=== PATIENT | male | born 1990 | race African-American/Black ===

== ENCOUNTER 2020-09-15 00:47 | Emergency (ER) | payer OTHER, SELFPAY ==
[2020-09-15 00:50] VITALS: BP 136/78; PULSE 74; RESP 18; TEMP 37.1; O2SAT 100
--- NOTE | 2020-09-15 01:00 | ED.DENTAL ---
HPI - Dental/Oral General Chief complaint: Dental/Oral Stated complaint: mouth pain Time Seen by Provider: 09/15/20 00:55 Source: RN notes reviewed History of Present Illness HPI Narrative: Patient presents emergency department from home via EMS for dental pain. Patient states symptoms began yesterday. States that his left upper tooth is carious and chipped he states the pain became severe last night he took a drill bit to try to help the pain broke off another piece of the tooth he states he did not drill into his tooth or into his gum he states he did take ibuprofen for pain with minimal relief he denies any fevers or chills ear pain sore throat inability to swallow or any other symptoms. patient states he does not have a dentist patient states he was trying to use the drill bit only to break up the tooth denies any thoughts of harming himself Related Data Allergies Allergy/AdvReac Type Severity Reaction Status Date / Time No Known Allergies Allergy Verified 05/09/19 15:34 Review of Systems Review of Systems: Narrative: Gen.: Denies fevers or chills HEENT: See HPI Respiratory: Denies shortness of breath Neuro: Denies headache Skin: Denies rash Endo: Denies DM PMFSH Past Medical History Medical History (Updated 09/15/20 @ 01:02 by Oscar Alva DO) Traumatic brain injury Social History Social History Smoking status: Never smoker Gender identity (if verbalized by the patient): Male Exam Narrative: Exam Narrative: APPEARANCE: No acute distress, nontoxic, resting in bed HEENT: Normocephalic, atraumatic, TMs clear bilaterally, nares patent, oral mucosa moist, airway patent, tooth approximately #12 is carious and chipped there is mild erythema of the gum with no fluctuance there is no open wound seen in the mouth there are several other carious teeth there is no swelling of the face in this region RESPIRATORY: No respiratory distress MUSCULOSKELETAl: Moves all extremities. NEURO: Awake and alert. Following commands, speech normal, no focal deficits SKIN:: Warm, dry. Normal Color PSYCHIATRIC: Normal affect/mood, denies suicidal ideation, denies homicidal ideation Course Course Emergency Course: Discussed with patient results of workup and diagnosis. Discussed need for follow-up with primary care, proper use of medication, and reasons to return to the emergency department. Patient understands and agrees to current treatment plan Vital Signs Vital signs: Vital Signs Temperature 98.7 F 09/15/20 00:50 Pulse Rate 74 09/15/20 00:50 Respiratory Rate 18 09/15/20 00:50 Blood Pressure 136/78 09/15/20 00:50 Pulse Oximetry 100 09/15/20 00:50 Temperature 98.7 F 09/15/20 00:50 Pulse Rate 74 09/15/20 00:50 Respiratory Rate 18 09/15/20 00:50 Blood Pressure 136/78 09/15/20 00:50 Pulse Oximetry 100 09/15/20 00:50 Discharge Plan Discharge Clinical Impression: Dental caries, Toothache Patient Disposition: Home, Self-Care Condition: Stable Instructions: Antibiotic Form, Toothache (ED) Additional Instructions: Return for increasing pain fever or any other symptoms of concern Prescriptions: New ibuprofen [IBU] 600 mg tablet 600 mg PO Q6H PRN (Reason: pain) Qty: 20 RF: 0 penicillin V potassium 500 mg tablet 500 mg PO TID Qty: 30 RF: 0 Follow-up/Referrals: [facility] Dental [facility] [Outside] - 2 Days [facility] [Outside] - 2 Days Zheng Arias MD [Physician] - (Follow-up in 1-2 days for further on-call physician treatment and evaluation) UNKNOWN,DOCTOR [Primary Care Provider] - Stand Alone Forms: Work/School Release IP Time of Disposition: :
[2020-09-15] MEDS: PENICILLIN V POTASSIUM 250 MG TABLET 500 MG PO (01:12)
[2020-09-15] MEDS: HYDROcodone/acetaminophen (*CRX) 5-325 MG TABLET 1 TAB PO (01:12)
[2020-09-15 01:30] VITALS: BP 128/71; PULSE 72; RESP 16; O2SAT 100
== END 2020-09-15 01:30 | disposition home or self-care (01) ==
LOC: ANHED 01:13
PROVIDERS: Emergency Provider Emergency Medicine
DX: K02.9 Dental caries, unspecified (principal); Z87.820 Personal history of traumatic brain injury
CPT/HCPCS: 99283; A9270

== ENCOUNTER 2023-05-11 12:17 | Emergency (ER) | payer OTHER, SELFPAY ==
--- NOTE | ~2023-05-11 | XR_ITS ---
EXAMINATION: XR finger 5th RT min 2V DATE: 05/11/2023 13:35 INDICATION: Decreased range of motion to the right fifth proximal interphalangeal joint with a post i njury TECHNIQUE: Dorsal palmar, lateral and oblique views of the right fifth digit were obtained COMPARISON: None FINDINGS: There is hyperextension at the right fifth distal interphalangeal joint. Alignment is otherwise unrem arkable. No fracture. Joint spaces appear normal with no erosions or osteophytosis. Soft tissues are unremarkable. IMPRESSION: 1. Hyperextension at the right fifth distal interphalangeal joint. No other osseous abnormality. Reviewed, dictated and finalized at location A. OPERATOR IMPRESSION: 1. Hyperextension at the right fifth distal interphalangeal joint. No other oss eous abnormality.
[2023-05-11 13:03] VITALS: BP 115/76; PULSE 72; RESP 20; TEMP 36.8; O2SAT 100
--- NOTE | 2023-05-11 13:18 | ED.EXTPRO ---
HPI - Extremity Problem General Chief complaint: Extremity Problem,Nontraumatic Stated complaint: cant bend R. pinky finger Time Seen by Provider: 05/11/23 14:25 Source: patient Mode of arrival: ambulatory Limitations: no limitations History of Present Illness HPI Narrative: Patient is a 33-year-old male who presents for pain to the right pinky that has been going on 1 year, states he feels he can't bend his pinky like he should be able to. he jammed it 1 year ago. was never seen for this. denies numbness/tingling to the finger. Related Data Allergies Allergy/AdvReac Type Severity Reaction Status Date / Time No Known Allergies Allergy Verified 05/09/19 15:34 Review of Systems Review of Systems: CONSTITUTIONAL: Denies fever MUSCULOSKELETAL:+right pinky pain and decreased ability to bend it NEUROLOGIC: Denies numbness, or weakness. All systems reviewed & are unremarkable except as noted in HPI and below PMFSH Past Medical History Medical History (Updated 05/11/23 @ 14:30 by Paola Torres APRN) Traumatic brain injury Social History Social History Smoking status: Never smoker Gender identity (if verbalized by the patient): Male Exam Narrative: BRIEF FOCUSED EXAM: RUE: there is no swelling to the right little finger. distal NV intact. cap refill <2 seconds. decreased ROM distal of the PIP joint and DIP joint. no warmth. 1425: GENERAL: Well-appearing, well-nourished, and in no acute distress. HEAD: Normocephalic HEART: regular rate. RESP: respirations regular and non-labored. RUE: there is no swelling to the right little finger. distal NV intact. cap refill <2 seconds. decreased ROM distal of the PIP joint and DIP joint. no warmth. SKIN: Warm, dry, no rash. NEURO: No focal deficits. PSYCH: flat affect. Course Vital Signs Vital signs: Vital Signs Temperature 98.2 F 05/11/23 13:03 Pulse Rate 72 05/11/23 13:03 Respiratory Rate 20 05/11/23 13:03 Blood Pressure 115/76 05/11/23 13:03 Pulse Oximetry 100 05/11/23 13:03 Oxygen Delivery Room Air 05/11/23 13:03 Temperature 98.2 F 05/11/23 13:03 Pulse Rate 72 05/11/23 13:03 Respiratory Rate 20 05/11/23 13:03 Blood Pressure 115/76 05/11/23 13:03 Pulse Oximetry 100 05/11/23 13:03 Oxygen Delivery Room Air 05/11/23 13:03 MDM - Extremity (Nontraumatic) MDM Narrative Medical decision making narrative: presents for little finger pain/decreased bending after jamming it a year ago. X_RAY negative for acute fracture, there is minor decreased ROM of the DIP joint compared to other digits. no signs of infection. discussed he shoudl f/u with ortho if needed/hand but likely has been a year now there may not be anything else to do. discussed otc tylenol/motrin, gentle stretching and splint for comfort if needed. Patient is nontoxic in appearance. Stable re-evaluation exam just before discharge. Patient in no acute distress. Vitals within normal limits. Discussed return precautions with the patient including all the red flag signs or symptoms of when to return the patient. The patient verbalized understanding and was agreeable with discharge and close follow-up Medical Records Attestation: I reviewed the patient's medical records. Discharge Plan Discharge Clinical Impression: Pain in finger of right hand Injury of right little finger Qualifiers: Encounter type: initial encounter Qualified Code(s): S69.91XA - Unspecified injury of right wrist, hand and finger(s), initial encounter Patient Disposition: Home, Self-Care Condition: Stable Instructions: Antibiotic Form, Jammed Finger (ED) Additional Instructions: over the counter tylenol/motrin for any pain splint for comfort see orthopedics/hand if needed Emergency Departments (ED) provide medical screening exams and initial stabilizing treatment of emergency medical conditions. Medicine is a
== END 2023-05-11 14:39 | disposition home or self-care (01) ==
PROVIDERS: Emergency Provider Nurse Practitioner
DX: S69.91XA Unspecified injury of right wrist, hand and finger(s), initial encounter (principal); M79.644 Pain in right finger(s); Z87.820 Personal history of traumatic brain injury; X58.XXXA Exposure to other specified factors, initial encounter
CPT/HCPCS: 29130; 73140; 99283

== ENCOUNTER 2024-05-18 06:50 | Day surgery (SDC) | payer OTHER, SELFPAY ==
[2024-04-27 13:43] VITALS: BMI 32.3
--- NOTE | 2024-05-18 06:51 | PM.HPGS ---
History of Present Illness History of Present Illness Chief complaint: Keloid Right Ear Narrative: Patient seen and examined in pre-operative holding area. No interval change in medical history or symptoms. Patient recalls previous discussion of benefits and alternatives to procedure. Continues to desire to proceed with excision right earlobe keloid. Reviewed procedure, post-op expectations and risks including but not limited to bleeding, infection, asymmetry, undesireable cosmetic appearance, no change or worsening of symptoms, recurrence. I discussed the possible use of assistants and their participation in the case. Patient stated understanding and signed the consent form wishing to proceed. Review of Systems Review of Systems: All systems reviewed & are unremarkable except as noted in HPI and below PMFSH Past Medical History Medical History (Updated 04/04/24 @ 11:07 by Sierra Gandhi MD) Traumatic brain injury Social History Social History Smoking status: Never smoker Second hand tobacco smoke exposure: Yes Alcohol intake: never Substance use type: does not use Gender identity (if verbalized by the patient): Male Meds Home Medications and Allergies Home Medications ?Medication ?Instructions ?Recorded ?Confirmed ?Type omeprazole 40 mg capsule,delayed mg 05/18/24 History release paliperidone palmitate 78 mg/0.5 mg IM 05/18/24 History mL intramuscular syringe (Invega Sustenna) trazodone 50 mg tablet mg 05/18/24 History Allergies Allergy/AdvReac Type Severity Reaction Status Date / Time No Known Allergies Allergy Verified 05/18/24 08:17 Exam Narrative: unchanged Assessment and Plan Assessment and plan (1) Neoplasm of uncertain behavior of skin: Code(s): D48.5 - Neoplasm of uncertain behavior of skin Status: Acute Assessment and Plan: cont as above (2) Keloid: Code(s): L91.0 - Hypertrophic scar Status: Acute
--- NOTE | 2024-05-18 06:52 | P.OP_ITS ---
Procedure Note - Detailed Date of Procedure 05/18/24 Pre-op Diagnosis Keloid Right Ear Post-op Diagnosis Same Procedure Performed excision right earlobe keloid Surgeon Sierra Gandhi MD Comsec Manager des lott pa-c Anesthesia MAC Description of Procedure Patient was seen in the preoperative holding area where the consent form was signed in the right ear marked. He was taken back to the operating room on the stretcher in the supine position. Time-out was performed with Anesthesia, surgeon, and staff agreeing on patient's name, site, and surgery to be performed. SCDs were placed on lower extremities and inflated. Antibiotics were given IV. After anesthesia administered sedation I proceeded with injecting 5 cc of 1% lidocaine with epinephrine and 0.5% Marcaine plain for greater auricular and local block. Surgical site was prepped and draped in usual sterile fashion. An using a 15 blade scalpel proceed with making an incision on the anterior and posterior surface of the keloid base near normal appearing skin through skin and dermis. A 15 blade was used to elevate normal dermal skin flaps anteriorly and posteriorly and I proceeded with excision of all irregular tissue with 15 blade scalpel. Bovie cautery was used for hemostasis. Resection resulted in a defect measuring 2 x 1.5 cm. Direct line closure would have resulted in significant deformity and bowing of the ear and iregular contour. I proceeded with excising Burow's triangle toward the conchal bowl with 15 blade scalpel sparing auricular cartilage. I further excised and trimmed skin edges to create a smooth contour between helical rim, lobe, and cheek. This allowed for rotation and advancement of the superiorly based flap and ear tissue to achieve closure with minimal tension. The flap was secured to the remaining earlobe/cheek with 5 0 Monocryl and 5 0 Prolene. A dressing of Mastisol, Steri-Strips, 4x4s and a pressure dressing was applied. Patient was awakened from anesthesia and transferred to the recovery room in stable condition. Complications: None estimated blood loss: 3 cc disposition: Patient tolerated the procedure well and will be going home later today Des Lott PA-C was essential for positioning, retraction, closure and dressing placement [facility] [place] - Charge Forward: Surgery Billing ([id number] for des)
--- NOTE | 2024-05-18 06:54 | WPDANESEPPF ---
Anes - Initial Pre Proc Eval Procedure: Operation Date: 05/18/24 09:00 Proposed Procedures p Excision Keloid Right Ear with Tissue Transfer - Sierra Gandhi MD Date/Time: 05/18/24 06:54 Surgeon: Sierra Gandhi MD Pre Op Diagnosis: Keloid Right Ear Patient Data Age: 34 Gender: M Height: 1.68 m Weight: 91 kg Allergies Allergy/AdvReac Type Severity Reaction Status Date / Time No Known Allergies Allergy Verified 05/18/24 08:17 Home Medications ?Medication ?Instructions ?Recorded ?Confirmed ?Type omeprazole 40 mg capsule,delayed mg 05/18/24 History release paliperidone palmitate 78 mg/0.5 mg IM 05/18/24 History mL intramuscular syringe (Invega Sustenna) tramadol 50 mg tablet 50 mg PO Q6H PRN pain #12 tabs 05/18/24 Rx trazodone 50 mg tablet mg 05/18/24 History Patient hx anesthesia problems: none Family hx anesthesia problems: none Results Review: All pre-operative results and documents have been reviewed as part of the pre-operative evaluation. [facility] Past Medical History Medical History (Updated 05/18/24 @ 08:56 by Isaias Adam DO) Schizophrenia Traumatic brain injury Social History Social History (Updated 05/18/24 @ 08:56 by Isaias Adam DO) Smoking status: Current every day smoker Second hand tobacco smoke exposure: Yes Alcohol intake: never Substance use type: does not use Gender identity (if verbalized by the patient): Male Anes - Eval Final PreProcedure Day of Procedure 05/18/24 06:54 Patient weight: obese Heart: regular rate and rhythm Lungs: clear to auscultation Airway: Mallampati scale class II Neurological: alert and oriented Last oral intake: >/= 8 hours ASA classification: III Emergent: no Anesthetic plan: proceed Anesthesia type and monitoring: general GIVS and LMA and standard monitoring Results Review: All pre-operative results and documents have been reviewed as part of the pre-operative evaluation. Informed Consent: The patient's anesthetic plan and its attendant risks and benefits were discussed with the patient/family/POA. Questions were solicited and answers provided to the satisfaction of the patient/family/POA.
[2024-05-18 08:13] VITALS: BP 122/84; PULSE 85; RESP 18; TEMP 36.7; O2SAT 100
[2024-05-18] MEDS: LACTATED RINGERS 1,000 ML 30 ML IV CONT (08:14)
[2024-05-18] MEDS: ceFAZolin SODIUM 2 GM/20 ML SW SYRINGE IV PUSH (08:59)
[2024-05-18] MEDS: BUPivacaine HCL 0.5% PF 30 ML VIAL 5 ML INFILTRATE (09:10)
[2024-05-18 09:42] VITALS: BP 104/71; PULSE 82; RESP 15; O2SAT 100
[2024-05-18 09:47] VITALS: O2SAT 100
[2024-05-18 09:52] VITALS: BP 99/83; PULSE 73; RESP 16; O2SAT 100
[2024-05-18 10:02] VITALS: BP 107/72; PULSE 74; RESP 18; O2SAT 100
--- NOTE | 2024-05-18 10:30 | WPDANESPN ---
Anes - Prog Note Post-Op Date/Time: 05/18/24 10:30 Cardiovascular status: normal Respiratory status: normal Airway patency: baseline Mental status: baseline Post-Op hydration status: normal Vital Signs: Last Vital Signs Temp 36.7 C 05/18/24 08:13 Pulse 74 05/18/24 10:02 Resp 18 05/18/24 10:02 BP 107/72 05/18/24 10:02 Pulse Ox 100 05/18/24 10:02 O2 Del Method Room Air 05/18/24 10:02 O2 Flow Rate 3 05/18/24 09:47 Pain Score (VAS): 0 I/O: Intake & Output 05/17/24 05/18/24 05/18/24 23:59 07:59 15:59 Intake Total 0 Balance 0 Post-procedural complaints: none Patient Feedback: Patient satisfied with anesthetic care. Other Findings: Patient vital signs back to baseline. Patient denies nausea and vomiting. Patient's pain under control. Patient OK for discharge.
== END 2024-05-18 10:24 ==
PROVIDERS: Visit Provider Plastic Surgery
CPT/HCPCS: 14060

== ENCOUNTER 2024-05-18 07:00 | Outpatient (NON) | payer OTHER, SELFPAY | END 2024-05-18 07:01 | disposition home or self-care (01) | LOC: ANHLAB 05-19 08:05 | PROVIDERS: Visit Provider Plastic Surgery | DX: L91.0 Hypertrophic scar (principal); H61.021 Chronic perichondritis of right external ear | CPT/HCPCS: 88304 ==

== ENCOUNTER 2024-07-25 07:42 | Outpatient (CLI) | payer OTHER, SELFPAY ==
--- OUTSIDE RECORDS SUMMARY | 2024-07-25 07:47 | XMS_ITS | Continuity of Care Document ---
Author Name [facility] Organization [facility] Care Team Providers Care Chief Librarian Circulation Department Name Role Phone [facility] Unavailable Unavailable Problems Combined list of problems from Department of Defense and Veterans Affairs facilities. It does not include entries that were removed or entered in error. 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 placed on doxycycline. sending to Derm for eval for I and D. 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 DoD common cold Active Condition DoD Allergies, Adverse Reactions, Alerts Combined list of allergies from Department of Defense and Veterans Affairs facilities. It does not include entries that were removed or entered in error. Substance Category Reaction Severity Reaction type Status Date Reported Comments Source No Known Allergies Drug allergy (disorder) active 01/09/2008 [facility] [place] Immunizations Combined list of available immunizations from the Department of Defense and Veterans Affairs facilities. Immunization Series Date Given Administered By Site Reaction Lot Number CVX Code Drug Weigh Tank Operator Status Comments Source hepatitis A vaccine, pediatric/ado lescent dosage, 2 dose schedule 1 2007 [id number] Sanofi Pasteur ([facility]) complet ed hepatitis A vaccine, pediatric /adolesce nt dosage, 2 dose schedule DoD measles, mumps and rubella virus vaccine 1 2007 [id number] 03 Unknown (UNK) Not Given measles, mumps and rubella virus vaccine DoD varicella virus vaccine 1 2007 UNK 21 Unknown (UNK) Not Given varicella virus vaccine DoD hepatitis B vaccine, adult dosage 1 2007 [id number] 43 Unknown (UNK) Not Given hepatitis B vaccine, adult dosage DoD poliovirus vaccine, inactivated 1 2007 [id number] Sanofi Pasteur ([facility]MC) complet ed polioviru s vaccine, inactivat ed DoD meningococcal polysaccharid e (groups A, C, Y and W-135) diphtheria toxoid conjugate vaccine (MCV4P) 1 2007 [id number] Sanofi Pasteur ([facility]MC) complet ed meningoco ccal polysacch aride (groups A, C, Y and W-135) diphtheri a toxoid conjugate vaccine (MCV4P) DoD tetanus toxoid, reduced diphtheria toxoid, and acellular pertu is vaccine, adsorbed 1 2007 [id number] Sanofi Pasteur ([facility]) complet ed tetanus toxoid, reduced diphtheri a toxoid, and acellular pertussis vaccine, adsorbed DoD Encounters Combined list of: 1) Encounters from Department of Veterans Affairs facilities going backup to the last 18 months, not all VA inpatient encounters are included; 2) Encounters from the Department of Defense facilities going backup to 280 months. Location Location Details Encounter Type Encounter Number Reason For Visit Attending Provider ADM Date DC Date Status Disposition Source ANTHONY Pablo([facility]) OUTPATIENT [id number] cold symptom s BRANDON ROSENBAUM S 01/06 Released w/o Limitations ANTHONY Pablo([facility]) ANTHONY Pablo([facility]) OUTPATIENT [id number] ear infecti on CIRO PINEDA M 01/19 Released w/o Limitations ANTHONY Pablo([facility]) [facility]) OUTPATIENT [id number] SKIN ABSCESS OF THE LEFT EAR HAMILTON ERN M 01/29 Released w/o Limitations ANTHONY Pablo([facility]) ANTHONY Pablo([facility]) OUTPATIENT [id number] Finger swollen SARAH TRINH M 02/22 Released with Work/Duty Limitations ANTHONY Pablo([facility]) [facility] ANTHONY([facility]y Clinic) OUTPATIENT [id number] f/u guillermoHAMILTON Acuna 02/27 Released w/o Limitations ANTHONY Pablo(Derm atology Clinic) [facility] [place]) OUTPATIENT [id number] Blood in OD MILDRED BANKS 03/19 Released w/o Limitations [facility]( [facility] Clinic [facility]) [facility] [place]) OUTPATIENT [id number] ear inf. GERARDO DING E 04/11 Released w/o Limitations [facility]( [facility] n) Procedures Combined list of: 1) Procedures from Department of Veterans Affairs facilities going back up to thelast 18 months, not all VA non-surgical procedures are included; 2) All procedures from the Department of Defense facilities. Procedure Procedure Type Code Date Perfomer Comments [facility] e Determination Of Refractive State Determination Of Refractive State [id number] MILDRED BANKS [facility] Ophthalmological New Patient Start Comprehensive Care Ophthalmological New Patient Start Comprehensive Care [id number] MILDRED BANKS [facility] Intralesional Injections - Up To Seven Intralesional Injections - Up To Seven [id number] 8 H[place] REN [facility] Intralesional Injections - Up To Seven Intralesional Injections - Up To Seven [id number] 8 H[place] REN [facility] Patient Training And Self-Care Skills Additional 15 Minutes Patient Training And Self-Care Skills Additional 15 Minutes [id number] BRANDON ROSENBAUM DoD INJECTION, INTRALESIONAL; UP TO AND INCLUDING 7 LESIONS 8 DoD INJECTION, INTRALESIONAL; UP TO AND INCLUDING 7 LESIONS 8 [facility] SELF-CARE/HOME MANAGMENT TRAIN (EG,ACT OF DAILY LIVING (ADL) &COMPENSAT TRAIN,MEAL PREPARATION,SAFETY PROCS,AND INSTRUCT IN USE OF ASST TECHNOLOGY DEV/ADPT EQUIP) DIR ONE-ON-ONE CONT,EA 15 MINUTES 8 DoD FITTING OF SPECTACLES, EXCEPT FOR APHAKIA; MONOFOCAL 11/03/200 8 DoD Social History Combined list of available smoking, tobacco, and other social history from Department of Defense and Veterans Affairs facilities. Social History Type Response Date Comment Sourc e This section is an empty social history section. DoD
--- OUTSIDE RECORDS SUMMARY | 2024-07-25 07:47 | XMS_ITS | Referral Summary ---
Author Organization [address] Address [address] [facility] [address] [place] [address] Care Team Providers Care Human Resources Temp Name Role Phone Ted Carlos MD Primary Care Provider Encounters Date Type Department Care Team Description 06/14/2024 Telephone [facility] Medical Group Primary Care at [address] [address] Nemo Stephenson MA Test Results; Scheduling Appointments 06/09/2024 8:28 AM SECURITIES UNDERWRITER - 06/09/2024 11:59 PM SECURITIES UNDERWRITER Hospital Encounter [address] [address] Mixed hyperlipidemia Discharge Disposition: Discharge to home or self care 06/09/2024 8:30 AM SECURITIES UNDERWRITER Lab [facility] Medical [facility] at [address] [address] Major depressive disorder, single episode, unspecified (Primary Dx); 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 Insomnia 12/01/2023 Major depressive disorder, single episode, unspe cified 10/28/2023 Schizophrenia 10/28/2023 Assessment & Plan (11/09/2023 12:47 PM CDT): complicated by not having current psychiatry coverage, I will attempt to restart 1st [place] then we will switch him over at earliest opportunity to [facility] Referral to Psychiatry sent Encounter for medical examination to establish c are 10/28/2023 Assessment & Plan (11/09/2023 12:45 PM CDT): A(n) initial Visit to establish care has been performed today. Baldemar Guadarrama is not up to date on screening tests. He is in need of hepatitis-B, C and Cholesterol screening. He is not up to date on needed preventative vaccinations; He is in need of Tdap/Td. We discussed healthy lifestyle habits, educational material has been given. Medications reviewed, changes documented as per the medical record and discussed with patient along with risks vs benefits. Return in 1 month Immunizations Immunization Administration Dates Next Due Influenza, Unspecified 03/06/2024(Deferr ed: Patient Refused),05/17/2023(Deferred: Patient Refused),11/14/2022(Deferred: Patient Refused),05/17/2022(Deferred: Patient Refused) Social History Tobacco Use Types Packs/Day Years Used Date Smoking Tobacco: Never Smokeless Tobacco: Never AUDIT-C Answer Date Recorded Q1: How often do you have a drink containing alc ohol? Monthly or less 10/28/2023 Q2: How many drinks containi ng alcohol do you have on a typical day when you are drinking? 1 or 2 10/28/2023 Q3: How often do you have si x or more drinks on one occasion? Less than monthly 10/28/2023 PHQ-2 Answer Date Recorded PHQ-2 Total Score (If total score is 3 or more points, staff should administer the PHQ-9) 0 03/06/2024 Sex and Gender Information Value Date Recorded Sex Assigned at Not on file Legal Sex Male 4:32 PM CDT Gender Identity Not on file Sexual Orientation Not on file Last Filed Vital Signs Vital Sign Reading Time Taken Comments Blood Pressure 116/80 03/06/2024 8:55 AM CDT Pulse 79 03/06/2024 8:55 AM CDT Temperature 36 C (96.8 F) 03/06/2024 8:55 AM CDT Respiratory Rate 16 03/06/2024 8:55 AM CDT Oxygen Saturation 98% 03/06/2024 8:55 AM CDT Inhaled Oxygen Concentration - - Weight 92.5 kg (204 lb) 03/06/2024 8:55 AM CDT Height 167.6 cm (5' 6 ) 03/06/2024 8:55 AM CDT Body Mass Index 32.93 03/06/2024 8:55 AM CDT Plan of Treatment Not on file Procedures Procedure Name Priority Date/Time Associated Diagnosis Comments EGFR Routine 06/09/2024 8:28 AM SECURITIES UNDERWRITER Mixed hyperlipidemia DIFFERENTIAL AUTO Routine 06/09/2024 8:2 8 AM SECURITIES UNDERWRITER Mixed hyperlipidemia LIPID PANEL Routine 06/09/2024 8:28 AM SECURITIES UNDERWRITER Mixed hyperlipidemia CBC WITH AUTO DIFFERENTIAL Routine 06/09/2024 8:28 AM SECURITIES UNDERWRITER Mixed hyperlipidemia COMPREHENSIVE METABOLIC PANEL Routine 06/09/2024 8:28 AM SECURITIES UNDERWRITER Mixed hyperlipidemia from Last 3 Months Results * eGFR (06/09/2024 8:28 AM SECURITIES UNDERWRITER) Pathologist [facility] eGFR >90 >=60 mL/min/1. 73 m2 Comment: Interpretive Data Reference Interval Normal >/= 90 mL/min/1.73m2 Mildly decreased* 60 - 89 mL/min/1.73m2 Mildly to moderately decreased 45 - 59 mL/min/1.73m2 Moderately to severely decreased 30 - 44 mL/min/1.73m2 Severely decreased 15 - 29 mL/min/1.73m2 Kidney Failure < 15 mL/min/1.73m2 *Relative to young adult level Estimated glomerular filtration rate is determined by the 2020 CKD-EPI equation recommended by the National Kidney Foundation (A Unifying Approach to GFR Estimation: Recommendations of the NKF-ASK Task Force on Reassessing the Inclusion of Race in Diagnosing Kidney Disease, JASN 2020). The CKD-EPI equation should not be used for patients with unstable renal function and has not been validated in children and those over 70. Current interpretive data was last reviewed 2021. Blood 06/09/2024 8:28 AM SECURITIES UNDERWRITER 06/09/2024 5:10 PM SECURITIES UNDERWRITER us Ted Carlos MD LAB BLOOD ORDERABLES Final Result [facility] [address] Department [place] [address] * (ABNORMAL) Differential, auto (06/09/2024 8:28 AM SECURITIES UNDERWRITER) Pathologist [facility] Neutrophil abs 4.8 1.5 - 6.5 K/cumm Imm gran abs 0.0 0.0 - 0.1 K/cumm [facility] Lymphocyte abs 3.8(H) 0.8 - 3.3 K/cumm [facility] Monocyte abs 0.9(H) 0.2 - 0.8 K/cumm [facility] Eosinophil abs 0.4 0.0 - 0.5 K/cumm [facility] Basophil abs 0.1 0.0 - 0.1 K/cumm [facility] Neutrophil pct 48.2 % [facility] Comment: Interpretive Data Percent cell count reference ranges are not reported, since discordance with absolute values may lead to misinterpretation of CBC data. Current Interpretive Data was last revised on 2017. Imm gran pct 0.4 % [facility] Comment: Interpretive Data Percent cell count reference ranges are not reported, since discordance with absolute values may lead to misinterpretation of CBC data. Current Interpretive Data was last revised on 2017. Lymphocyte pct 38.3 % [facility] Comment: Interpretive Data Percent cell count reference ranges are not reported, since discordance with absolute values may lead to misinterpretation of CBC data. Current Interpretive Data was last revised on 2017. Monocyte pct 8.6 % [facility] Comment: Interpretive Data Percent cell count reference ranges are not reported, since discordance with absolute values may lead to misinterpretation of CBC data. Current Interpretive Data was last revised on 2017. Eosinophil pct 3.7 % [facility] Comment: Interpretive Data Percent cell count reference ranges are not reported, since discordance with absolute values may lead to misinterpretation of CBC data. Current Interpretive Data was last revised on 2017. Basophil pct 0.8 % [facility] Comment: Interpretive Data Percent cell count reference ranges are not reported, since discordance with absolute values may lead to misinterpretation of CBC data. Current Interpretive Data was last revised on 2017. Blood 06/09/2024 8:28 AM SECURITIES UNDERWRITER 06/09/2024 4:57 PM SECURITIES UNDERWRITER Ted Carlos MD LAB BLOOD ORDERABLES Final Result [facility] [address] Department [place] [address] * (ABNORMAL) CBC with auto differential (06/09/2024 8:28 AM SECURITIES UNDERWRITER) WBC 10.0(H) 3.8 - 9.9 K/cumm Hgb 13.7 13.0 - 17.5 g/dL [facility] Hct 43.5 38.9 - 50.3 % [facility] Plt 213 150 - 400 K/cumm [facility] MPV 11.4 9.1 - 12.3 fL [facility] RBC 4.64 4.30 - 5.80 M/cumm [facility] MCV 93.8 81.3 - 96.4 fL [facility] MCH 29.5 27.1 - 33.3 pg [facility] MCHC 31.5(L) 32.3 - 35.7 g/dL [facility] RDW CV 14.2 11.1 - 14.9 % [facility] RDW SD 49.1(H) 35.7 - 48.1 fL [facility] NRBC abs 0.00 0.00 - 0.01 K/cumm [facility] Blood 06/09/2024 8:28 AM SECURITIES UNDERWRITER 06/09/2024 4:57 PM SECURITIES UNDERWRITER Ted Carlos MD LAB BLOOD ORDERABLES Final Result [facility] [address] [address] Department [place] [address] * Lipid panel (06/09/2024 8:28 AM SECURITIES UNDERWRITER) Cholesterol 140 30 - 199 mg/dL Comment: Interpretive Data Ages < or = 19 years Acceptable: <170 mg/dL Borderline high: 170-199 mg/dL High: >or= 200 mg/dL Ages > or = 20 years Desirable: <200 mg/dL Borderline high: 200-239 mg/dL High: >or= 240 mg/dL Literature References: 1. Expert Panel on Integrated Guidelines for Cardiovascular Health and Risk Reduction in Children and Adolescents. Pediatrics 2011;128:S213 2. NCEP Expert Panel. Circulation 2004;110:227 Current Interpretive Data was last revised on 2018. Triglycerides 97 <=149 mg/dL [facility] Comment: Interpretive Data Ages < or = 9 years Acceptable: <75 mg/dL Borderline high: 75-99 mg/dL High: >or= 100 mg/dL Ages 10 to 20 years Acceptable: <90 mg/dL Borderline high: 90-129 mg/dL High: >or= 130 mg/dL Ages > or = 20 years Desirable: <150 mg/dL Borderline high: 150-199 mg/dL High: 200-499 mg/dL Very high: >or= 499 mg/dL Literature References: 1. Expert Panel on Integrated Guidelines for Cardiovascular Health and Risk Reduction in Children and Adolescents. Pediatrics 2011;128:S213 2. NCEP Expert Panel. Circulation 2004;110:227 Current Interpretive Data was last revised on 2018. HDL 41 >=40 mg/dL [facility] Comment: Interpretive Data Ages < or = 19 years Acceptable: >45 mg/dL Borderline low: 40-45 mg/dL Low: <40 mg/dL Ages > or = 20 years Desirable: >or= 60 mg/dL Low: <40 mg/dL Literature References: 1. Expert Panel on Integrated Guidelines for Cardiovascular Health and Risk Reduction in Children and Adolescents. Pediatrics 2011;128:S213 2. NCEP Expert Panel. Circulation 2004;110:227 Current Interpretive Data was last revised on 2018. LDL, calculated 81 <=129 mg/dL [facility] Comment: Interpretive Data Ages < or = 19 years Acceptable: <110 mg/dL Borderline high: 110-129 mg/dL High: >or= 130 mg/dL Ages > or = 20 years Optimal: <100 mg/dL Near optimal: 100-129 mg/dL Borderline high: 130-159 mg/dL High: >160 mg/dL Calculated using the Fantasma LDL-C estimating equation. This equation was implemented on 2024. Prior to this date LDL-C was estimated using the Friedewald equation. Literature References: 1. Expert Panel on Integrated Guidelines for Cardiovascular Health and Risk Reduction in Children and Adolescents. Pediatrics 2011;128:S213 2. NCEP Expert Panel. Circulation 2004;110:227 3. Fantasma Cotter al. JIMY Cardiol. 2020 September 14;5(5):540-548. doi: 10.1001/jamacardio.2020.0013 Current Interpretive Data was last revised on 2024. Non-HDL Cholesterol 99 mg/dL [facility] Comment: Interpretive Data Ages < or = 19 years Acceptable: <120 mg/dL Borderline high: 120-144 mg/dL High: >145 mg/dL Ages > or = 20 years When triglycerides are >200 mg/dL, Non-HDL cholesterol is a secondary target of therapy with treatment goals that are 30 mg/dL greater than the LDL cholesterol target. Literature References: 1. Expert Panel on Integrated Guidelines for Cardiovascular Health and Risk Reduction in Children and Adolescents. Pediatrics 2011;128:S213 2. NCEP Expert Panel. Circulation 2004;110:227 Current Interpretive Data was last revised on 2018. Chol/HDL ratio 3 [facility] Blood 06/09/2024 8:28 AM SECURITIES UNDERWRITER 06/09/2024 4:57 PM SECURITIES UNDERWRITER Tde Carlos MD LAB BLOOD ORDERABLES Final Result [facility] [address] Department [place] [address] * Comprehensive metabolic panel (06/09/2024 8:28 AM SECURITIES UNDERWRITER) Sodium 138 135 - 145 mmol/L Potassium, pl 4.5 3.3 - 4.9 mmol/L [facility] Chloride 105 97 - 110 mmol/L [facility] CO2 24 22 - 32 mmol/L [facility] Anion gap 9 2 - 15 mmol/L [facility] BUN 9 6 - 25 mg/dL [facility] Creatinine 1.01 0.80 - 1.30 mg/dL [facility] Glucose 81 70 - 199 mg/dL [facility] Comment: Interpretive Data Fasting glucose >/= 126 mg/dl is diagnostic for diabetes. Fasting is defined as no caloric intake for at least 8 hours. Fasting glucose between 100 mg/dl to 125 mg/dl is diagnostic of prediabetes. In a patient with classic symptoms of hyperglycemia or hyperglycemic crisis, a random glucose >/= 200 mg/dl is diagnostic for diabetes. In the absence of unequivocal hyperglycemia, results should be confirmed by repeat testing. The classification and Diagnosis of Diabetes Diabetes Care 202; 46: S19-S40. Current interpretive data was last revised 2022. Calcium 9.4 8.5 - 10.3 mg/dL [facility] Bilirubin, total <0.2 0.1 - 1.2 mg/dL [facility] Protein, pl 7.2 6.5 - 8.5 g/dL [facility] Albumin 4.1 3.5 - 5.0 g/dL [facility] Alk phos 130 40 - 130 Units/L [facility] ALT 20 7 - 55 Units/L [facility] AST 34 10 - 50 Units/L [facility] Blood 06/09/2024 8:28 AM SECURITIES UNDERWRITER 06/09/2024 4:57 PM SECURITIES UNDERWRITER Ted Carlos MD LAB BLOOD ORDERABLES Final Result Performing Organization Address City/State/ZIP [facility] Phone Number [facility] [address] Department of Laboratories [place] [id number] from Last 3 Months Insurance [id number] [facility] Care Teams Human Resources Temp Relationship Specialty Start Date End Date Ted Carlos MD [address] [address] PCP - General Family Medicine 10/19/23
--- OUTSIDE RECORDS SUMMARY | 2024-07-25 07:47 | XMS_ITS | Clinical Summary ---
Author Organization [facility] [address] Address [address] [place] [address] [address] [place] [address] Care Team Providers Care Ultrasound Technol Name Role Phone Ted Carlos MD Primary Care Provider [phone] Allergies No known active allergies Medications Invega Trinza 273 mg/0.88 mL syringeIndication s:Other schizophrenia (HCC) Inject 0.88 mL (273 mg total) into the muscle as instructed every 3 (three) months 4 Active paliperidone (Invega Sustenna) 78 mg/0.5 mL [...] psychiatry coverage, I will attempt to restart Anthony, 1st [place] then we will switch him over at [...] risks vs benefits. Return in 1 month Encounters Date Type Department Care Team Description 06/14/2024 Telephone [facility] Medical Group Primary Care at [address] [address] Nemo Stephenson MA Test Results; Scheduling Appointments 06/09/2024 8:30 AM SR. MANAGER Lab [facility] at [address] [address] Major depressive disorder, single episode, unspecified (Primary Dx); Class 1 drug-induced obesity with serious comorbidity and body mass index (BMI) of 32.0 to 32.9 in adult; Schizophrenia (HCC) 06/09/2024 8:28 AM SR. MANAGER - 06/09/2024 11:59 PM SR. MANAGER [place] [address] Mixed hyperlipidemia Discharge Disposition: Discharge to home or self care from Last 3 Months Immunizations Immunization Administration Dates Next Due Influenza, Unspecified 03/06/2024(Deferr ed: Patient Refused),05/17/2023(Deferred: Patient Refused),11/14/2022(Deferred: Patient Refused),05/17/2022(Deferred: Patient Refused) Surgical History Surgery Date Site/Laterality Comments NO PAST SURGERIES Medical History Medical History Date Comments ADHD (attention deficit hyperactivity disorder) Allergic Anemia Asthma Depression Eczema GERD (gastroesophageal reflux disease) Headache Sleep difficulties Manic depression (HCC) Schizophrenia (HCC) Family History Medical History Relation Name Comments Depression Brother No Known Problems Father Heart disease Maternal Grandfather Hypertension Maternal Grandfather Asthma Maternal Grandmother Tuberculosis Maternal Grandmother Depression Mother Hyperlipidemia Mother Hypertension Mother Kidney disease Mother Mitral valve prolapse Mother No Known Problems Paternal Grandfather No Known Problems Paternal Grandmother No Known Problems Sister Relation Name Status Comments Brother Alive Father Alive Maternal Grandfather Alive Maternal Grandmother Mother Alive Paternal Grandfather Paternal Grandmother Sister Alive Social History Tobacco Use Types Packs/Day Years [...] on file Sexual Orientation Not on file Obstetrics History Last Filed Vital Signs Vital Sign Reading [...] 03/06/2024 8:55 AM CDT Plan of Treatment Health Maintenance Due Date Last Done Comments Hepatitis C Screening 1989 Hepatitis B Screening 2007 Regular Well Visit/Exam 18-64 2007 Covid-19 Vaccine (2 - season) 2024 01/29/2021 Influenza Vaccine (#1) 2024 Postp oned from 01/16/2024 (Patient declined, but will receive in the future) Depression Screening 03/06/2025 03/06/2024, 10/28/2023, 10/28/2023 DTaP/Tdap/Td Vaccine (1 - Tdap) 05/16/2025 Postponed from 02/14/2000 (Insurance / Financial) HPV Vaccines Aged Out No longer eligi ble based on patient's age to complete this topic Pneumococcal vaccine <65 Aged Out No longer eligible based on patient's age to complete this topic Varicella Vaccines Discontinued Procedures Procedure Name Priority Date/Time Associated Diagnosis Comments EGFR Routine 06/09/2024 8:28 AM SR. MANAGER Mixed hyperlipidemia DIFFERENTIAL AUTO Routine 06/09/2024 8:2 8 AM SR. MANAGER Mixed hyperlipidemia LIPID PANEL Routine 06/09/2024 8:28 AM SR. MANAGER Mixed hyperlipidemia CBC WITH AUTO DIFFERENTIAL Routine 06/09/2024 8:28 AM SR. MANAGER Mixed hyperlipidemia COMPREHENSIVE METABOLIC PANEL Routine 06/09/2024 8:28 AM SR. MANAGER Mixed hyperlipidemia from Last 3 Months Results * eGFR (06/09/2024 8:28 AM SR. MANAGER) eGFR >90 >=60 mL/min/1. 73 m2 Comment: [...] last reviewed 2021. Blood 06/09/2024 8:28 AM SR. MANAGER 06/09/2024 5:10 PM SR. MANAGER us Tde Carlos MD LAB BLOOD ORDERABLES Final Result [facility] [address] Department [place] [address] * (ABNORMAL) Differential, auto (06/09/2024 8:28 AM SR. MANAGER) Neutrophil abs 4.8 1.5 - 6.5 K/cumm Imm gran abs 0.0 0.0 - 0.1 K/cumm [facility] Lymphocyte abs 3.8(H) 0.8 - 3.3 K/cumm [facility] Monocyte abs 0.9(H) 0.2 - 0.8 K/cumm [facility] Eosinophil abs 0.4 0.0 - 0.5 K/cumm [facility] Basophil abs 0.1 0.0 - 0.1 K/cumm [facility] Neutrophil pct 48.2 % [facility] Comment: Interpretive Data Percent cell count reference ranges are not reported, since discordance with absolute values may lead to misinterpretation of CBC data. Current Interpretive Data was last revised on 2017. Imm gran pct 0.4 % [facility] Comment: Interpretive Data Percent cell count reference ranges are not reported, since discordance with absolute values may lead to misinterpretation of CBC data. Current Interpretive Data was last revised on 2017. Lymphocyte pct 38.3 % [facility] Comment: Interpretive Data Percent cell count reference ranges are not reported, since discordance with absolute values may lead to misinterpretation of CBC data. Current Interpretive Data was last revised on 2017. Monocyte pct 8.6 % [facility] Comment: Interpretive Data Percent cell count reference ranges are not reported, since discordance with absolute values may lead to misinterpretation of CBC data. Current Interpretive Data was last revised on 2017. Eosinophil pct 3.7 % [facility] Comment: Interpretive Data Percent cell count reference ranges are not reported, since discordance with absolute values may lead to misinterpretation of CBC data. Current Interpretive Data was last revised on 2017. Basophil pct 0.8 % [facility] Comment: Interpretive Data Percent cell count reference ranges are not reported, since discordance with absolute values may lead to misinterpretation of CBC data. Current Interpretive Data was last revised on 2017. Blood 06/09/2024 8:28 AM SR. MANAGER 06/09/2024 4:57 PM SR. MANAGER us Ted Carlos MD LAB BLOOD ORDERABLES Final Result [facility] [address] Department [place] [address] * (ABNORMAL) CBC with auto differential (06/09/2024 8:28 AM SR. MANAGER) WBC 10.0(H) 3.8 - 9.9 K/cumm Hgb 13.7 13.0 - 17.5 g/dL [facility] Hct 43.5 38.9 - 50.3 % [facility] Plt 213 150 - 400 K/cumm [facility] MPV 11.4 9.1 - 12.3 fL [facility] RBC 4.64 4.30 - 5.80 M/cumm [facility] MCV 93.8 81.3 - 96.4 fL [facility] MCH 29.5 27.1 - 33.3 pg [facility] MCHC 31.5(L) 32.3 - 35.7 g/dL [facility] RDW CV 14.2 11.1 - 14.9 % [facility] RDW SD 49.1(H) 35.7 - 48.1 fL [facility] NRBC abs 0.00 0.00 - 0.01 K/cumm [facility] Blood 06/09/2024 8:28 AM SR. MANAGER 06/09/2024 4:57 PM SR. MANAGER us Ted Carlos MD LAB BLOOD ORDERABLES Final Result [facility] [address] Department [place] [address] * Lipid panel (06/09/2024 8:28 AM SR. MANAGER) Cholesterol 140 30 - 199 mg/dL Comment: [...] revised on 2018. Triglycerides 97 <=149 mg/dL [facility] Comment: Interpretive Data Ages [...] NCEP Expert Panel. Circulation 2004;110:227 3. Fantasma Pablo et al. JIMY Cardiol. 2019September 14;5(5):540-548. doi: 10.1001/jamacardio.2020.0013 Current Interpretive Data was [...] last revised on 2018. Chol/HDL ratio 3 [facility] Blood 06/09/2024 8:28 AM SR. MANAGER 06/09/2024 4:57 PM SR. MANAGER us Ted Carlos MD LAB BLOOD ORDERABLES Final Result [facility] [address] Department [place] [address] * Comprehensive metabolic panel (06/09/2024 8:28 AM SR. MANAGER) Sodium 138 135 - 145 mmol/L Potassium, [...] classification and Diagnosis of Diabetes Diabetes Care 2021; 46: S19-S40. Current interpretive data was last [...] Units/L [facility] Blood 06/09/2024 8:28 AM SR. MANAGER 06/09/2024 4:57 PM SR. MANAGER us Ted Carlos MD LAB BLOOD ORDERABLES Final Result [facility] [id number] Department [place] [address] from Last 3 Months Insurance [facility] Care Teams Ultrasound Technol Relationship Specialty Start Date End Date Ted Carlos MD [address] [address] PCP - General Family Medicine 10/19/23
[2024-08-16 12:26] VITALS: BMI 32.3
--- NOTE | 2024-08-16 12:26 | P.SLEEP_ITS ---
Sleep Study Date of Study: 07/25/24 Ordering Provider: Ludivina Lou MD Interpreting Physician: Shanita Day DO Sleep Study Type: Polysomnogram Height: 1.68 m Weight: 90.718 kg Body Mass Index: 32.3 Neck Circumference (inches): 15.75 [place]: 0 Reason for Sleep Study Difficulty falling asleep Sleep History The patient is a 34-year-old male that had a sleep study ordered by his coin machine collector for evaluation of sleep apnea. The patient denies awakening from sleep short of breath. He denies awakening at night with heartburn, belching or cough. He denies snoring. He occasionally has trouble sleeping when he has a cold. He denies waking up gasping for air throughout night. He denies having breathing problems at night observed by himself or others. He frequently sweats excessively at night. He denies having heart palpitations or irregular heartbeats during the night. He denies falling asleep during the day and while driving. He denies sleep paralysis and cataplexy. He denies having trouble at school or work due to sleepiness. He constantly experiences vivid dreamlike scenes upon awakening or falling asleep. He denies feeling afraid of going to sleep. He occasionally has nightmares. He constantly remembers his dreams. He constantly has thoughts racing through his mind. He denies feeling sad, depressed or anxious. He denies having muscular tension. He denies noticing parts of his body jerk. He denies kicking during the night. He denies having crawling and aching feelings in his legs and denies having leg pain during he denies grinding his teeth during sleep and denies awakening with morning jaw pain. He denies being bothered by pain during the day and denies being awakened by pain during night. He denies waking up feeling stiff in the morning. He denies waking up with sore or achy muscles. He denies waking up with pain in the neck, spine and other joints. He goes to bed at 8:00 p.m. on weekdays and at 11:00 p.m. on the weekends. It takes him several hours to fall asleep. He wakes up twice throughout the night to adjust his position. He wakes up at 7:00 a.m. on both weekdays and weekends. He typically gets 4-5 hours of sleep per night. He will stay in bed for 1 hour after waking up in the morning. He currently lives with his mother. He denies consuming any caffeinated beverages within 2 hours of bedtime. He will engage in physical exercise before bedtime. He denies reading before falling asleep. He will watch television before falling asleep. He denies taking naps in afternoon or the evening. [facility] Past Medical History Medical History Schizophrenia Traumatic brain injury Social History Social History Smoking status: Current every day smoker Second hand tobacco smoke exposure: Yes Alcohol intake: never Substance use type: does not use Living arrangements: with family Gender identity (if verbalized by the patient): Male Spiritual care concerns: No Sleep Procedure A full night polysomnogram using the [employer] multi-channel system recorded the standard physiologic parameters including EEG, EOG, submentalis EMG, anterior tibialis EMG, EKG, body position, nasal and oral airflow using nasal pressure sensor and thermistor.? Respiratory parameters of chest and abdominal movements were recorded with Respiratory Inductance Plethysmography belts. Oxygen saturation was recorded by pulse oximetry. Video monitoring was also performed. Sleep stages, periodic limb movements, and EEG arousals were scored in 30 second epochs according to the criteria of the AASM Scoring Manual. The Apnea-Hypopnea Index was calculated using CMS guidelines for definition of hypopnea with 4% O2 desaturations while scoring respiratory events. Sleep Architecture The total recording time was 484.8 minutes.? The total sleep time was 187.0 minutes. Sleep latency was 78.3 minutes. REM latency was 87.5 minutes. Sleep efficiency was 38.6%. The patient had 40 awakenings for an awakening index of 12.8. Wake after sleep onset time was 220.0 minutes. The patient spent 54.5 minutes, 29.1% of total sleep time in Stage N1. The patient spent 108.0 minutes, 57.8% in Stage N2. The patient spent 2.0 minutes, 1.1% in Stage N3. The patient spent 22.5 minutes, 12.0% in Stage REM sleep. Respiratory Analysis The patient had 2 hypopneas for an overall Apnea Hypopnea Index of 0.6. The REM Apnea Hypopnea Index was 10.7. The NREM Apnea Hypopnea Index was 0. The patient had a Central Apnea Hypopnea Index of 0. There was no evidence of Rangel-Hidalgo Respirations. Arousals There were 73 total arousals for an arousal index of 23.4. There were 72 spontaneous arousals for an index of 23.1. There was 1 arousal due to respiratory events for an index of 0.3. There were 0 arousals due to periodic limb movements for an index of 0.? There were 0 arousals due to isolated limb movements for an index of 0. Periodic Limb Movements There were no isolated or periodic limb movements seen during this study. Oximetry Data The patient had an average oxygen saturation of 96.0% in sleep with a minimum oxygen saturation of 93.0% and a maximum oxygen saturation of 98.0%. The patient had 3 oxygen desaturations that were 4% or greater resulting in an Oxygen Desaturation Index of 1.0.? The patient spent 0 minutes of total sleep time with an oxygen saturation below 88%. Snoring Profile Mild to moderate snoring was present throughout the study. Cardiac Profile The EKG showed normal sinus rhythm. No arrhythmias or premature beats were seen. The patient had an average pulse rate of 76.9 bpm with a minimum pulse of rate of 62.0 bpm and a maximum pulse rate of 110.0 bpm.? EEG Profile No signs of seizure activity seen. Alpha intrusion was present throughout the study. Assessment and Plan Assessment and Plan (1) Insomnia: Qualifiers: Insomnia type: unspecified Qualified Code(s): G47.00 - Insomnia, unspecified Code(s): G47.00 - Insomnia, unspecified Status: Acute Assessment and Plan: The patient had an overall AHI of 0.6 with desaturation down to 93%. This is not consistent with sleep disordered breathing. The patient had a sleep latency of 78.3 minutes and a sleep efficiency of 38.6% during the study. The patient was noted to be using his cell phone watching videos during the sleep study while instructed to try to fall asleep. Insomnia is likely due to poor sleep hygiene, lack of stimulus control and too much time spent in bed while not sleeping. I recommend that the patient consider CBT-Insomnia. Alpha intrusion, also known as alpha-delta sleep, is an EEG finding where alpha waves are present during NREM sleep. Alpha waves are typically present in wake. While alpha intrusion can be seen in a small subset of healthy individuals, it is often found in patients with depression, fibromyalgia, chronic pain and other sleep disorders. Clinically, alpha intrusion presents as non-restorative sleep. Treatment of alpha intrusion is directed towards the underlying cause. Insomnia Tips * Have a wind down period before bed where there are no electronics, blue light or stimulating activities. 30 minutes- 1 hour. * Establish a set wake-up time for yourself, and get up at the set time even if you feel like you need more sleep * Do not go to bed until you are ready to fall asleep. Do not go to bed because it is bedtime * If you have not gone to sleep after what feels like 20 minutes, get up and leave the bedroom. Meditate, pray, listen to soft music or read a boring book until you feel sleepy.? No work or productive activities. Go back to bedroom and try to fall asleep. Repeat cycle as many times until you fall asleep. * The bed is only meant for sleep and sex. Avoid activities like reading, smoking, listening to the radio, using the computer, or watching TV in bed. * Try to keep active during the day and avoid napping. * No caffeine after noon. Data The data obtained during this sleep study is adequate for interpretation. Certification This sleep study has been reviewed by a board certified sleep medicine physician.
== END 2024-07-26 06:37 | disposition home or self-care (01) ==
LOC: ANHCSM 07:43
PROVIDERS: Visit Provider Internal Medicine Critical Care Medicine
DX: F51.01 Primary insomnia (principal); G47.8 Other sleep disorders; G47.00 Insomnia, unspecified
CPT/HCPCS: 95810